=== PATIENT | male | born 2000 | race Caucasian/White ===

== ENCOUNTER 2021-04-23 09:38 | Emergency (ER) | payer OTHER | END 2021-04-23 10:19 | disposition home or self-care (01) | LOC: ER1 09:38 | DX: U07.1 COVID-19 (principal); F17.200 Nicotine dependence, unspecified, uncomplicated; J45.909 Unspecified asthma, uncomplicated | CPT/HCPCS: 99283; U0003 ==

== ENCOUNTER 2021-05-04 21:54 | Emergency (ER) | payer OTHER | END 2021-05-05 00:45 | disposition home or self-care (01) | LOC: ER1 21:54 | DX: S01.01XA Laceration without foreign body of scalp, initial encounter (principal); Z23 Encounter for immunization; Y04.2XXA Assault by strike against or bumped into by another person, initial encounter; J45.909 Unspecified asthma, uncomplicated | CPT/HCPCS: 12034; 70450; 90471; 90715; 99284 ==